=== PATIENT | male | born 1975 | race Caucasian/White ===

== ENCOUNTER → 2017-07-16 | Outpatient (CLI) | payer BC | LOC: COL.RAD 10:24 | DX: K76.0 Fatty (change of) liver, not elsewhere classified (principal); R79.89 Other specified abnormal findings of blood chemistry ==

== ENCOUNTER → 2017-10-17 | Outpatient (CLI) | payer BC ==
[2017-10-17 14:55] LABS: BASO # 0.1 (0.0-0.2); BASO % 0.8 % (0.0-2.0); EOS # 0.1 (0.0-0.7); EOS % 0.9 % (0-4.0); GRAN # 5.1 (1.4-6.5); HEMATOCRIT 47.8 % (42.0-52.0); HEMOGLOBIN 16.1 g/dl (13.5-18.0); LYMPH # 1.9 (1.2-3.4); LYMPH % 24.5 % (20.0-51.0); MEAN CELL VOLUME 88 fl (80.0-100.0); MEAN CORPUSCULAR HEMOGLOBIN 30 pg (27.0-31.0); MEAN CORPUSCULAR HGB CONC 34 g/dl (33.0-37.0); MEAN PLATELET VOLUME 10.1 fl (7.4-10.4); MONO # 0.5 (0.1-0.6); MONO % 6.5 % (1.7-9.3); PLATELET COUNT 309 K/mm3 (130-400); RED BLOOD COUNT 5.44 M/mm3 (4.20-5.60); REDCELL DISTRIBUTION WIDTH-CV 12.1 % (11.5-14.5)
[2017-10-17 15:38] LABS: ALANINE AMINOTRANSFERASE 108 U/L (21-72); ALBUMIN 4.8 gm/dL (3.5-5.0); ALKALINE PHOSPHATASE 54 U/L (50-136); ANION GAP 15 mmol/L (7-16); AST,SGOT 77 U/L (15-37); BILIRUBIN,TOTAL 0.9 mg/dL (0.0-1.0); BLOOD UREA NITROGEN 22 mg/dL (9-20); CARBON DIOXIDE 25 mmol/L (22-30); CHLORIDE 103 mmol/L (98-107); CREATININE, serum 1.37 mg/dL (0.66-1.25); GLUCOSE 90 mg/dL (74-106); POTASSIUM 4.3 mmol/L (3.4-5.0); SODIUM 143 mmol/L (137-145); TOTAL PROTEIN 8.9 gm/dL (6.4-8.2)
[2017-10-17 15:50] LABS: TROPONIN-I < 0.012 ng/mL (0.000-0.034)
== END ==
LOC: COL.LAB 14:23
PROVIDERS: Internal Medicine
DX: R00.2 Palpitations (principal)

== ENCOUNTER → 2019-11-03 | Outpatient (CLI) | payer BC | LOC: COL.RAD 08:01 | DX: K76.0 Fatty (change of) liver, not elsewhere classified (principal) ==

== ENCOUNTER 2020-08-29 02:30 | Observation (INO) | payer BC ==
[2020-08-29] VITALS (298 sets, daily range): BP systolic 119–150; BP diastolic 55–86; PULSE 50–70; TEMP 97.6–98.1; O2SAT 90–100
[~2020-08-29] VITALS: Ht 188 cm; Wt 123.1 kg
[2020-08-29 02:45] LABS: BASO # 0.1 (0.0-0.2); BASO % 0.9 % (0.0-2.0); EOS # 0.2 (0.0-0.7); EOS % 2.4 % (0-4.0); GRAN # 3.7 (1.4-6.5); HEMATOCRIT 42.5 % (42.0-52.0); HEMOGLOBIN 14.3 g/dl (13.5-18.0); LYMPH # 2.4 (1.2-3.4); LYMPH % 35.5 % (20.0-51.0); MEAN CELL VOLUME 90 fl (80.0-100.0); MEAN CORPUSCULAR HEMOGLOBIN 30 pg (27.0-31.0); MEAN CORPUSCULAR HGB CONC 34 g/dl (33.0-37.0); MEAN PLATELET VOLUME 10.1 fl (7.4-10.4); MONO # 0.5 (0.1-0.6); MONO % 6.9 % (1.7-9.3); PLATELET COUNT 244 K/mm3 (130-400); REDCELL DISTRIBUTION WIDTH-CV 12.3 % (11.5-14.5)
[2020-08-29 03:03] LABS: PROTHROMBIN TIME 11.2 SECONDS (9.7-12.8)
[2020-08-29 03:05] LABS: ALANINE AMINOTRANSFERASE 55 U/L (4-49); ALBUMIN 4.2 gm/dL (3.5-5.0); ALKALINE PHOSPHATASE 38 U/L (50-136); ANION GAP 7 mmol/L (7-16); AST,SGOT 40 U/L (15-37); BILIRUBIN,TOTAL 0.5 mg/dL (0.0-1.0); BLOOD UREA NITROGEN 20 mg/dL (9-20); CALCIUM 9.1 mg/dL (8.4-10.2); CARBON DIOXIDE 25 mmol/L (22-30); CHLORIDE 108 mmol/L (98-107); CREATINE KINASE 186 U/L (55-170); CREATININE, serum 0.99 (0.66-1.25); GLUCOSE 104 mg/dL (74-106); LIPASE 110 U/L (23-300); SODIUM 140 mmol/L (137-145); TOTAL PROTEIN 7.1 gm/dL (6.4-8.2)
[2020-08-29] MEDS ORDERED: LOFIBRA160 MG PO (03:14)
[2020-08-29] MEDS ORDERED: LEXAPRO20 MG PO (03:15)
[2020-08-29 03:17] LABS: TROPONIN-I < 0.012 ng/mL (0.000-0.035)
--- NOTE | 2020-08-29 04:25 | NUR ---
Pt arrived to ICU room 4 at this time via cart with ERIC Camacho RN. Pt able to transfer from the cart to the ICU bed without assistance. Pt oriented to room and call light system. PRIYANK Gordon, at the bedside. Call light within reach.
[2020-08-29 05:52] LABS: CHOLESTEROL RISK RATIO 4.4
--- NOTE | 2020-08-29 07:11 | NUR ---
Bedside shift report given to DEEPA Clarke.
--- NOTE | 2020-08-29 10:18 | NUR ---
0905 Dr. Galaviz into see patient. Cathlab orders received.
--- NOTE | 2020-08-29 10:20 | NUR ---
procedure cancelled by dr koch
--- NOTE | 2020-08-29 10:23 | NUR ---
1022 patient left for dental laboratory supervisor.
--- NOTE | 2020-08-29 10:39 | NUR ---
SEE MERGE FOR ALL MEDICATION ADMINISTRATION TIMES, INTRA AND POST SEDATION ASSESSMENTS
--- NOTE | 2020-08-29 11:32 | NUR ---
PT back from electroplating laborer. No interventions needed. Dr. Galaviz bedside discussing POC with PT and .
--- NOTE | 2020-08-29 11:46 | NUR ---
First visit from the crown perforator operator. No needs right now.
--- NOTE | 2020-08-29 13:32 | NUR ---
Before starting patient stress test they had an elevated troponin another troponin was checked and found to being elevated. Dr. Galaviz was called to see if he still wanted to proceed with test. He did not want to do the stress test. RN was notified.
--- NOTE | 2020-08-29 15:06 | NUR ---
The patient was out of the room. Manager Solar met with the patient's , Lo to complete intake. The patient lives in [place] with Lo. The patient uses a CPAP and receives supplies from [employer]. The patient is independent. The patient's PCP is Dr. Martha Parkinson and patient receives medications from [facility] in [place]. The patient does not have advanced directives. The plan is for the patient to return home at discharge. There are no additional needs at this time.
[2020-08-29] MEDS ORDERED: PLAVIX 75MG TAB75 MG PO (17:28)
[2020-08-29] MEDS ORDERED: LIPITOR20 MG PO (17:28)
[2020-08-29] MEDS ORDERED: ASPIRIN 32325 MG/TAB PO (17:29)
[2020-08-29] MEDS ORDERED: EPA FISH OIL1 SGL PO (17:36)
--- NOTE | 2020-08-29 18:20 | NUR ---
PT discharged at 1820. PT able to amublate to 's vehicle. PT is without complaint and verbalizes understanding of discharge instructions.
== END 2020-08-29 18:20 | disposition home or self-care (01) ==
LOC: COL.ER 02:30 → ICU 03:26
PROVIDERS: Emergency Medicine; ADMIT Hospitalist
DX: I20.0 Unstable angina (principal); E78.00 Pure hypercholesterolemia, unspecified; F32.9 Major depressive disorder, single episode, unspecified; Z87.891 Personal history of nicotine dependence; Z82.49 Family history of ischemic heart disease and other diseases of the circulatory system
CPT/HCPCS: A9500; C1769; G0378; J1644; J2250; J3010; J7030; Q9967

== ENCOUNTER 2021-12-07 08:04 | Emergency (ER) | payer BC ==
[~2021-12-07] VITALS: Ht 188 cm; Wt 120.5 kg
[~2021-12-07 08:04] MED LIST: ASPIRIN 32325 MG/TAB PO; EPA FISH OIL1 SGL PO; LEXAPRO20 MG PO; LIPITOR20 MG PO; LOFIBRA160 MG PO; PLAVIX 75MG TAB75 MG PO
[2021-12-07 08:21] VITALS: TEMP 98.2
[2021-12-07 08:53] LABS: BASO # 0.1 K/mm3 (0.0-0.2); BASO % 1.1 % (0.0-2.0); EOS # 0.1 K/mm3 (0.0-0.7); GRAN # 3.9 K/mm3 (1.4-6.5); GRAN % 64.1 % (42.2-75.2); HEMATOCRIT 41.8 % (42.0-52.0); HEMOGLOBIN 13.8 g/dl (13.5-18.0); LYMPH # 1.6 K/mm3 (1.2-3.4); LYMPH % 25.8 % (20.0-51.0); MEAN CELL VOLUME 92 fl (80.0-100.0); MEAN CORPUSCULAR HEMOGLOBIN 30 pg (27-31); MEAN CORPUSCULAR HGB CONC 33 g/dl (33.0-37.0); MONO # 0.4 K/mm3 (0.1-0.6); MONO % 6.5 % (1.7-9.3); PLATELET COUNT 232 K/mm3 (130-400); RED BLOOD COUNT 4.55 M/mm3 (4.20-5.60); REDCELL DISTRIBUTION WIDTH-CV 12.4 % (11.5-14.5)
[2021-12-07] MEDS ORDERED: ROBAXIN 75750 MG/TAB (09:05)
[2021-12-07] MEDS ORDERED: PRISTIQ 50 MG T50 MG (09:05)
[2021-12-07 09:14] LABS: ALBUMIN 4.2 gm/dL (3.5-5.0); BILIRUBIN,TOTAL 0.7 mg/dL (0.2-1.2); CALCIUM 9.4 mg/dL (8.4-10.2); CREATININE, serum 1.14 mg/dL (0.72-1.25); POTASSIUM 4.4 mmol/L (3.5-4.5); TOTAL PROTEIN 7.4 gm/dL (6.2-8.1)
[2021-12-07 10:22] VITALS: BP 145/85; PULSE 54
== END 2021-12-07 10:30 | disposition short-term general hospital (02) ==
LOC: COL.ER 08:04
PROVIDERS: Emergency Medicine
DX: I62.00 Nontraumatic subdural hemorrhage, unspecified (principal); I25.10 Atherosclerotic heart disease of native coronary artery without angina pectoris; Z79.82 Long term (current) use of aspirin; Z79.02 Long term (current) use of antithrombotics/antiplatelets

== ENCOUNTER → 2021-12-10 | Outpatient (CLI) | payer BC ==
[~2021-12-10] MED LIST changes: +PRISTIQ 50 MG T50 MG; +ROBAXIN 75750 MG/TAB
== END ==
LOC: COL.RAD 17:03
DX: S06.5X9A Traumatic subdural hemorrhage with loss of consciousness of unspecified duration, initial encounter (principal); X58.XXXA Exposure to other specified factors, initial encounter

== ENCOUNTER → 2022-02-18 | Outpatient (CLI) | payer BC | LOC: COL.RAD 08:02 | DX: S06.5X9A Traumatic subdural hemorrhage with loss of consciousness of unspecified duration, initial encounter (principal); X58.XXXA Exposure to other specified factors, initial encounter | CPT/HCPCS: A9575 ==

== ENCOUNTER → 2022-09-23 | Outpatient (CLI) | payer BC | LOC: MC.RAD 11:00 | DX: R92.8 Other abnormal and inconclusive findings on diagnostic imaging of breast (principal) ==